=== PATIENT | male | born 1960 | race Caucasian/White ===

== ENCOUNTER 2016-09-03 01:45 | Outpatient (CLI) ==
[2013-06-06 08:37] VITALS: BMI 31.2
== END 2016-09-03 01:46 ==
LOC: AMBL 01:45
PROVIDERS: ATTEND Emergency Medicine
DX: E11.649 Type 2 diabetes mellitus with hypoglycemia without coma (principal); R41.82 Altered mental status, unspecified; R40.4 Transient alteration of awareness

== ENCOUNTER 2016-12-15 02:27 | Outpatient (CLI) ==
[2013-06-06 08:37] VITALS: BMI 31.2
== END 2016-12-15 02:28 ==
LOC: AMBL 02:27
PROVIDERS: ATTEND Internal Medicine Geriatric Medicine
DX: E11.649 Type 2 diabetes mellitus with hypoglycemia without coma (principal); R41.82 Altered mental status, unspecified; R40.2431 Glasgow coma scale score 3-8, in the field [EMT or ambulance]

== ENCOUNTER 2017-01-21 13:00 | Outpatient (RCR) ==
[2013-06-06 08:37] VITALS: BMI 31.2
--- NOTE | 2016-12-26 09:16 | RS.OPPTEV2 ---
Date of Note: 12/23/16 Visit #: 1 Date of Evaluation: 12/23/16 Payer Source: MEDICARE Surgery Performed?: Yes Treatment Diagnosis: Right foot/ankle pain and limitation History of Condition/Mechanism of Injury:: Patient reports injurying right ankle on 11/09/16 while cutting logs. A log flew off the machine and hit his leg. Reports having surgery on 11/22/16. He has been out of a cast for one week and is to be NWB until he returns to his doctor in January. Prior Level of Function.....Patient was independent with: ADL's, Self Care, Work /Vocation, Caregiving, Ambulation/Mobility, Community Integration/Access Functional Limitations: Sleep, Self Care, ADL's, Reaching, Pushing, Pulling, Lifting, Carrying, Sitting, Standing, Bending, Squatting, Ambulation, Community Access/Integration Current Subjective/complaints:: Patient reports he wears the CAM boot on the right LE unless he is at home sitting down, using the knee walker, or in bed. He uses crutches and the boot anytime he is on his feet. Reports a history of neuropathy from Diabetes. States he is very frustrated that he cannot do anything. He has been taking of the CAM boot to do ROM of the ankle. Treatment Side (optional): Right Medical History Medical History: Hypertension, COPD, Diabetes, Arthritis Medical History Comments:: Multiple medical dx, neuropathy Surgical History: Other Surgical History Comments:: Right foot surgery to remove bone spurs and length gastroc tendon 2014. Smoking Status: Never smoker Hx Home Medications: Multiple include Ultram BID, Gabapentin Patient's Goals: His goal is to return to his previous level of function. Pain Assessment - Pain Description Pain Location: right foot and ankle Pain Description: sharp Current Pain Intensity: not rated Worst Pain Intensity: not rated Functional Outcome Measure LE Functional Scale: 16 (16/80=80% impaired) - G Codes & Severity Modifier G Codes & Modifier: Mobility current CM. Mobiltiy goal CJ Source of G Code score: LE functional scale Observation - Observation Inspection: Patient presents to department with CAM boot on right LE and ambulating with two crutches. Upon removal of the CAM boot, right ankle, foot, and toes appear moderately swollen. Demonstrates a light dressing over the inferior portion of the incision at the lateral lower leg, which exhibits slight drainage. Girth Measurement Lower: Right LE : metheads 27.25 cm, arch 27 cm, malleoli 28.25 cm, 26 cm 4 inch above lateral malleoli. Gait - Gait Pattern Gait Comments: Patient ambulates NWB on right LE with two crutches, independently with safe gait. Ankle ROM: Left WFL's Ankle Muscle Strength: Left WFL's - Right Ankle ROM Right DF with Knee extension: to neutral Right Plantarflexion: 40 (degrees AROM) Right Eversion: 5 (degrees AROM) Right Inversion: 5 (degrees AROM) Right Ankle/Foot ROM Limitations: Pain Comments: Pain with end range eversion. - Right Ankle Strength Right Dorsiflexion: 4 Good Right Plantarflexion: 4- Good- Right Eversion: 4- Good- Right Inversion: 4- Good- Palpation Comments:: Reports general tenderness along the lateral malleoli. Sensation - Sensation Comments: Reports neuropathy in both feet, but states he can feel deep pressure throughout both LE's. Balance - Sitting Balance Static Sitting Balance: Normal Dynamic Sitting Balance: Normal - Standing Balance Static Standing Balance: Poor Dynamic Standing Balance: Poor - Treatment Modality: Electrical Stim Unattended Parameters/Method Applied: 4 small pads crossed current to right foot/ankle X20 mins HVGS up to 260 peak volts with CP Patient Position: Sitting - Heat/Cryotherapy Treatment: Cryotherapy (with Estim to right ankle) Interventions - Exercise/Activities/Manual Therapy Exercises/Activities: Patient advised to perform towel stretch for heelcord stretching and continue ROM in all directions in a pain-free range. Advised to ice the ankle/foot. Manual Therapy: NA HOME EXERCISE PROGRAM: towel stretch for heelcord stretching and continue ROM in all directions in a pain-free range. - Charges Total Direct Minutes: 58 mins Total Treatment Time: 58 mins Procedures billed for this date of service:: Eval Medium Assessment Assessment: Patient presents to therapy with a diagnosis of right closed fracture of distal end of fibula. He is ~ 5 weeks s/p ORIF. He is limited with all activities of selfcare, ADL's, and ambulation due to the proximity of surgery and being NWB on the Right LE. He will benefit from ROM and strengthening exercises to the right ankle and progress as he is able to weight bear. He demonstrates great potential to return to his previous level of function. Patient Education: Education of diagnosis, Body/Joint mechanics, Home Exercise Program, Home Safety, Activity Modification, Education of Plan of Care Rehab Potential: Good Short Term Goals Goal #1: Right DF 10 Goal to be met by: 01/09/17 Goal #2: Right ankle inversion and eversion 4/5. Goal to be met by: 01/09/17 Goal #3: Patient independent with basic HEP. Goal to be met by: 01/09/17 Correction Goals Goal #1: Patient to improve LE functional score to 60/80. Goal to be met by: 02/14/17 Goal #2: Pt to ambulate w/o assistive device with minimal gait deviation. Goal to be met by: 02/14/17 Goal #3: Pt able to perform all selfcare and ADL's without difficulty or ankle pain. Goal to be met by: 02/14/17 Goal #4: Pt able to return to work activities with minimal limitation. Goal to be met by: 02/14/17 Plan - Treatment to be Provided Procedures: Therapeutic Exercises, Therapeutic Activity, Gait Training, Neuromuscular Rehab, Manual Therapy, Patient Education Modalities: Electrical Stimulation, Class IV Laser, Cryotherapy, Hot Packs - Treatment Plan Frequency: 2-3 X week Duration: 6 weeks ORDER # VISITS AND/OR THROUGH DATE: 02/14/17 - Treatment Code (1) Ankle stiffness Qualifiers: Laterality: right Qualified Description: Stiffness of ankle joint, right Qualifier Code(s): (M25.671) Stiffness of right ankle, not elsewhere classified (2) Ankle weakness Comments: M62.81 (3) Ankle pain Qualifiers: Laterality: right Chronicity: acute Qualified Description: Acute right ankle pain Qualifier Code(s): (M25.571) Pain in right ankle and joints of right foot (4) Closed fracture of distal end of right fibula with routine healing Qualifiers: Encounter type: subsequent encounter Fracture morphology: unspecified fracture morphology Qualified Description: Closed fracture of distal end of right fibula with routine healing, unspecified fracture morphology, subsequent encounter Qualifier Code(s): (S82.831D) Other fracture of upper and lower end of right fibula, subsequent encounter for closed fracture with routine healing (5) Status post surgery Comments: Z98.890
--- NOTE | 2016-12-26 14:49 | RS.OPPTDN ---
Subjective Date of Note: 12/26/16 Visit #: 2 Date of Evaluation: 12/23/16 Payer Source: MEDICARE Treatment Diagnosis: Right foot/ankle pain and limitation Current Subjective/complaints:: Reports he is careful not to put weight on the right foot. States he is consistent with HEP of ROM of the right ankle. Pain Assessment - Pain Description Pain Location: right foot and ankle Pain Description: sharp Current Pain Intensity: mild with movement - Treatment Modality: Electrical Stim Unattended Parameters/Method Applied: [id number] HVGC to 4 large pads cross current to the right ankle at 475p.v. with CP prior to EX. Patient Position: Sitting - Heat/Cryotherapy Treatment: Cryotherapy ([id number] with Estim ) Interventions - Exercise/Activities/Manual Therapy Exercises/Activities: PROM of right ankle. Isometrics for right ankle df, inversion, and eversion, multiple reps. Isometric ankle pf 4s/5reps. Passive heelcord stretching. AROM ankle circles cw and ccw. Walked with patient to vecnyle and discussed safety with crutches and foot placement to avoid back and hip pain. Total minutes of Exercise: 20mins Manual Therapy: NA HOME EXERCISE PROGRAM: towel stretch for heelcord stretching and continue ROM in all directions in a pain-free range. Isometric ankld df, inversion, and eversion. - Charges Total Direct Minutes: 20mins Total Treatment Time: 40mins Procedures billed for this date of service:: CP, Estim unattended, EX Assessment: Patient progressing with exercises. Patient Education: Body/Joint mechanics, Home Exercise Program, Home Safety, Activity Modification Patient demonstrates compliance with HEP?: Yes Short Term Goals Goal #1: Right DF 10 Goal to be met by: 01/09/17 Progress towards Goal:: Progressing Goal #2: Right ankle inversion and eversion 4/5. Goal to be met by: 01/09/17 Progress towards Goal:: Progressing Goal #3: Patient independent with basic HEP. Goal to be met by: 01/09/17 Progress towards Goal:: Progressing Fdc Goals Goal #1: Patient to improve LE functional score to 60/80. Goal to be met by: 02/14/17 Goal #2: Pt to ambulate w/o assistive device with minimal gait deviation. Goal to be met by: 02/14/17 Goal #3: Pt able to perform all selfcare and ADL's without difficulty or ankle pain. Goal to be met by: 02/14/17 Goal #4: Pt able to return to work activities with minimal limitation. Goal to be met by: 02/14/17 Plan PLAN OF CARE EXPIRES ON:: 02/14/17 ORDER # VISITS AND/OR THROUGH DATE: 02/14/17 PLAN: Continue Plan of Care
--- NOTE | 2016-12-30 16:29 | RS.OPPTDN ---
Subjective Date of Note: 12/30/16 Visit #: 3 Date of Evaluation: 12/23/16 Payer Source: MEDICARE Treatment Diagnosis: Right foot/ankle pain and limitation Current Subjective/complaints:: Patient reports swelling seems to be improving. States incision line conitnues to have small amount of drainage, but he continues to consistently do dressing changes and feels it is healing. Pain Assessment - Pain Description Pain Location: right foot and ankle Pain Description: sharp Current Pain Intensity: mild with movement - Treatment Modality: Electrical Stim Unattended Parameters/Method Applied: [id number] HVGC to 500p.v. with 4 large pads to the right ankle cross current with cold pack prior to EX. Patient in sitting. Patient Position: Sitting - Heat/Cryotherapy Treatment: Cryotherapy ([id number] with Estim ) Interventions - Exercise/Activities/Manual Therapy Exercises/Activities: PROM of right ankle. Isometrics for right ankle df, inversion, and eversion, multiple reps. Isometric ankle pf, inv, and eversion, multiple reps. Passive heelcord stretching. AROM ankle circles cw and ccw. Yellow theraband for ankle pf, inv, and eversion, 3s/10reps each. Yellow theraband for ankle pf, 2s/10reps. Total minutes of Exercise: 20mins Manual Therapy: NA HOME EXERCISE PROGRAM: towel stretch for heelcord stretching and continue ROM in all directions in a pain-free range. Isometric ankld df, inversion, and eversion. Yellow theraband for ankle df, inversion, eversion. - Charges Total Direct Minutes: 20mins Total Treatment Time: 40mins Procedures billed for this date of service:: CP, Estim unattended, EX Assessment: Patient progressing with light resistive exercise. Patient Education: Home Exercise Program, Home Safety, Activity Modification Patient demonstrates compliance with HEP?: Yes Short Term Goals Goal #1: Right DF 10 Goal to be met by: 01/09/17 Progress towards Goal:: Progressing Goal #2: Right ankle inversion and eversion 4/5. Goal to be met by: 01/09/17 Progress towards Goal:: Progressing Goal #3: Patient independent with basic HEP. Goal to be met by: 01/09/17 Progress towards Goal:: Progressing Intermediate Goals Goal #1: Patient to improve LE functional score to 60/80. Goal to be met by: 02/14/17 Goal #2: Pt to ambulate w/o assistive device with minimal gait deviation. Goal to be met by: 02/14/17 Goal #3: Pt able to perform all selfcare and ADL's without difficulty or ankle pain. Goal to be met by: 02/14/17 Goal #4: Pt able to return to work activities with minimal limitation. Goal to be met by: 02/14/17 Plan PLAN OF CARE EXPIRES ON:: 02/14/17 ORDER # VISITS AND/OR THROUGH DATE: 02/14/17 PLAN: Continue Plan of Care
--- NOTE | 2017-01-02 15:24 | RS.OPPTDN ---
Subjective Date of Note: 01/02/17 Visit #: 4 Date of Evaluation: 12/23/16 Payer Source: MEDICARE Treatment Diagnosis: Right foot/ankle pain and limitation Current Subjective/complaints:: Patient reports continued improvement in ROM of the right foot/ankle. Reports continued swelling. States he is working on HEP including resistive work with yellow theraband. Pain Assessment - Pain Description Pain Location: right foot and ankle Pain Description: sharp Current Pain Intensity: mild with movement - Treatment Modality: Electrical Stim Unattended Parameters/Method Applied: [id number] HVGC to 500p.v. with 4 large pads to the right ankle with CP prior to EX. Patient Position: Sitting - Heat/Cryotherapy Treatment: Cryotherapy ([id number] with Estim ) Interventions - Exercise/Activities/Manual Therapy Exercises/Activities: PROM of right ankle. Isometrics for right ankle df, inversion, and eversion, multiple reps. Isometric ankle pf, inv, and eversion, multiple reps. Passive heelcord stretching. AROM ankle circles cw and ccw. Increaesed to red theraband for ankle pf, inv, and eversion, 4s/10reps each. Red theraband for ankle pf, 2s/10reps. Total minutes of Exercise: 20mins Manual Therapy: NA HOME EXERCISE PROGRAM: towel stretch for heelcord stretching and continue ROM in all directions in a pain-free range. Isometric ankld df, inversion, and eversion. Yellow theraband for ankle df, inversion, eversion. - Charges Total Direct Minutes: 20mins Total Treatment Time: 40mins Procedures billed for this date of service:: CP, Estim unattended, EX Assessment: Patient progressing with ROM and ability to work on resistive exercise. Patient Education: Home Exercise Program, Home Safety Patient demonstrates compliance with HEP?: Yes Short Term Goals Goal #1: Right DF 10 Goal to be met by: 01/09/17 Progress towards Goal:: Progressing Goal #2: Right ankle inversion and eversion 4/5. Goal to be met by: 01/09/17 Progress towards Goal:: Progressing Goal #3: Patient independent with basic HEP. Goal to be met by: 01/09/17 (100%) Progress towards Goal:: Met [facility] Goals Goal #1: Patient to improve LE functional score to 60/80. Goal to be met by: 02/14/17 Goal #2: Pt to ambulate w/o assistive device with minimal gait deviation. Goal to be met by: 02/14/17 Progress towards goal: No Change Goal #3: Pt able to perform all selfcare and ADL's without difficulty or ankle pain. Goal to be met by: 02/14/17 Progress towards goal: Progressing Goal #4: Pt able to return to work activities with minimal limitation. Goal to be met by: 02/14/17 Plan PLAN OF CARE EXPIRES ON:: 02/14/17 ORDER # VISITS AND/OR THROUGH DATE: 02/14/17 PLAN: Progress Exercises (Continue modalities and progress exercise at tolerated.)
--- NOTE | 2017-01-06 16:16 | RS.OPPTDN ---
Subjective Date of Note: 01/06/17 Visit #: 5 Date of Evaluation: 12/23/16 Payer Source: MEDICARE Treatment Diagnosis: Right foot/ankle pain and limitation Current Subjective/complaints:: Patient reports continued improvement in ROM and strengthening exercise with HEP. Pain Assessment - Pain Description Pain Location: right foot and ankle Pain Description: sharp Current Pain Intensity: mild with movement - Treatment Modality: Electrical Stim Unattended Parameters/Method Applied: [id number] HVGC to 500 p.v. with CP to the right ankle prior to EX. Patient Position: Sitting - Heat/Cryotherapy Treatment: Cryotherapy ([id number] with Estim ) Interventions - Exercise/Activities/Manual Therapy Exercises/Activities: PROM of right ankle. Isometrics for right ankle df, inversion, and eversion, multiple reps. Isometric ankle pf, inv, and eversion, multiple reps. Passive heelcord stretching. AROM ankle circles cw and ccw. Red theraband for ankle pf, inv, and eversion, 4s/10reps each. Red theraband for ankle pf, 2s/10reps. Total minutes of Exercise: 20mins Manual Therapy: NA HOME EXERCISE PROGRAM: towel stretch for heelcord stretching and continue ROM in all directions in a pain-free range. Isometric ankld df, inversion, and eversion. Red theraband for ankle df, inversion, eversion. - Charges Total Direct Minutes: 20mins Total Treatment Time: 40mins Procedures billed for this date of service:: CP, Estim unattended, EX Assessment: Patient progressin ith strengthening exercise. Patient Education: Home Exercise Program Patient demonstrates compliance with HEP?: Yes Short Term Goals Goal #1: Right DF 10 Goal to be met by: 01/09/17 Progress towards Goal:: Progressing Goal #2: Right ankle inversion and eversion 4/5. Goal to be met by: 01/09/17 Progress towards Goal:: Progressing Goal #3: Patient independent with basic HEP. Goal to be met by: 01/09/17 (100%) Progress towards Goal:: Met [facility] Goals Goal #1: Patient to improve LE functional score to 60/80. Goal to be met by: 02/14/17 Goal #2: Pt to ambulate w/o assistive device with minimal gait deviation. Goal to be met by: 02/14/17 Progress towards goal: No Change Goal #3: Pt able to perform all selfcare and ADL's without difficulty or ankle pain. Goal to be met by: 02/14/17 Progress towards goal: Progressing Goal #4: Pt able to return to work activities with minimal limitation. Goal to be met by: 02/14/17 Plan PLAN OF CARE EXPIRES ON:: 02/14/17 ORDER # VISITS AND/OR THROUGH DATE: 02/14/17 PLAN: Continue Plan of Care
--- NOTE | 2017-01-09 15:00 | RS.OPPTDN ---
Subjective Date of Note: 01/09/17 Visit #: 6 Date of Evaluation: 12/23/16 Payer Source: MEDICARE Treatment Diagnosis: Right foot/ankle pain and limitation Current Subjective/complaints:: Patient reports he had to put a little weight on the right foot yesterday because of dropping his crutches. He reports continued swelling today. States right ankle feels better after treatment and exercise. Pain Assessment - Pain Description Pain Location: right foot and ankle Pain Description: sharp Current Pain Intensity: mild with movement - Treatment Modality: Electrical Stim Unattended Parameters/Method Applied: [id number] HVGC to 485p.v. with 4 large pads to the right ankle with cold pack prior to EX. Patient Position: Sitting - Heat/Cryotherapy Treatment: Cryotherapy ([id number] with Estim ) Interventions - Exercise/Activities/Manual Therapy Exercises/Activities: PROM of right ankle. Isometrics for right ankle df, inversion, and eversion, multiple reps. Isometric ankle pf, inv, and eversion, multiple reps. Passive heelcord stretching. AROM ankle circles cw and ccw. Red theraband for ankle df, pf, inv, and eversion, multiple reps each direction. Total minutes of Exercise: 15mins Manual Therapy: NA HOME EXERCISE PROGRAM: towel stretch for heelcord stretching and continue ROM in all directions in a pain-free range. Isometric ankld df, inversion, and eversion. Red theraband for ankle df, inversion, eversion. - Objective Findings Observations,measurements,etc.: Patient demos active right ankle df to approx 5 degrees in sitting with right knee at 90 degrees. - Charges Total Direct Minutes: 15mins Total Treatment Time: 35mins Procedures billed for this date of service:: CP, Estim unattended, EX Assessment: Patient progressing with exercise and with active df. Patient Education: Home Exercise Program Patient demonstrates compliance with HEP?: Yes Short Term Goals Goal #1: Right DF 10 Goal to be met by: 01/09/17 (50%) Progress towards Goal:: Progressing Goal #2: Right ankle inversion and eversion 4/5. Goal to be met by: 01/09/17 (80%) Progress towards Goal:: Progressing Goal #3: Patient independent with basic HEP. Goal to be met by: 01/09/17 (100%) Progress towards Goal:: Met [employer] Goals Goal #1: Patient to improve LE functional score to 60/80. Goal to be met by: 02/14/17 Goal #2: Pt to ambulate w/o assistive device with minimal gait deviation. Goal to be met by: 02/14/17 Progress towards goal: No Change Goal #3: Pt able to perform all selfcare and ADL's without difficulty or ankle pain. Goal to be met by: 02/14/17 Progress towards goal: Progressing Goal #4: Pt able to return to work activities with minimal limitation. Goal to be met by: 02/14/17 Plan PLAN OF CARE EXPIRES ON:: 02/14/17 ORDER # VISITS AND/OR THROUGH DATE: 02/14/17 PLAN: Continue Plan of Care
--- NOTE | 2017-01-13 14:40 | RS.OPPTDN ---
Subjective Date of Note: 01/13/17 Visit #: 7 Date of Evaluation: 12/23/16 Payer Source: MEDICARE Treatment Diagnosis: Right foot/ankle pain and limitation Current Subjective/complaints:: Patient reports strength and ROM of right ankle continues to improve but incision continues to have some drainage. Pain Assessment - Pain Description Pain Location: right foot and ankle Pain Description: sharp Current Pain Intensity: mild with movement - Treatment Modality: Electrical Stim Unattended Parameters/Method Applied: [id number] HVGC to 500p.v. with 4 large pads to the right ankle with CP Patient Position: Sitting - Heat/Cryotherapy Treatment: Cryotherapy ([id number] with Estim ) Interventions - Exercise/Activities/Manual Therapy Exercises/Activities: PROM of right ankle. Isometrics for right ankle df, inversion, and eversion, multiple reps. Isometric ankle pf, inv, and eversion, multiple reps. Passive heelcord stretching. AROM ankle circles cw and ccw. Red theraband for ankle df, pf, inv, and eversion, multiple reps all direction. Total minutes of Exercise: 17mins Manual Therapy: NA HOME EXERCISE PROGRAM: towel stretch for heelcord stretching and continue ROM in all directions in a pain-free range. Isometric ankld df, inversion, and eversion. Red theraband for ankle df, inversion, eversion. - Charges Total Direct Minutes: 17mins Total Treatment Time: 37mins Procedures billed for this date of service:: CP, Estim unattended, EX Assessment: Patient progressing well with exercise and ROM of right ankle. He is consistently checking incision and changing dressings. Patient Education: Home Exercise Program Patient demonstrates compliance with HEP?: Yes Short Term Goals Goal #1: Right DF 10 Goal to be met by: 01/09/17 (50%) Progress towards Goal:: Progressing Goal #2: Right ankle inversion and eversion 4/5. Goal to be met by: 01/09/17 (100%) Progress towards Goal:: Met Goal #3: Patient independent with basic HEP. Goal to be met by: 01/09/17 (100%) Progress towards Goal:: Met [facility] Home Goals Goal #1: Patient to improve LE functional score to 60/80. Goal to be met by: 02/14/17 Goal #2: Pt to ambulate w/o assistive device with minimal gait deviation. Goal to be met by: 02/14/17 Progress towards goal: No Change Goal #3: Pt able to perform all selfcare and ADL's without difficulty or ankle pain. Goal to be met by: 02/14/17 Progress towards goal: Progressing Goal #4: Pt able to return to work activities with minimal limitation. Goal to be met by: 02/14/17 Plan PLAN OF CARE EXPIRES ON:: 02/14/17 ORDER # VISITS AND/OR THROUGH DATE: 02/14/17 PLAN: Continue Plan of Care
--- NOTE | 2017-01-15 14:33 | RS.OPPTDN ---
Subjective Date of Note: 01/15/17 Visit #: 8 Date of Evaluation: 12/23/16 Payer Source: MEDICARE Treatment Diagnosis: Right foot/ankle pain and limitation Current Subjective/complaints:: Patient reports he went for follow-up with physician. Reports physician was pleased with his ROM but concerned with incision still having drainage. Pain Assessment - Pain Description Pain Location: right foot and ankle Pain Description: sharp Current Pain Intensity: mild with movement - Treatment Modality: Electrical Stim Unattended Parameters/Method Applied: [id number] HVGC to 480 p.v. with 4 large pads to the right ankle and distal gastroc with CP prior to EX. Patient Position: Sitting - Heat/Cryotherapy Treatment: Cryotherapy ([id number] with Estim ) Interventions - Exercise/Activities/Manual Therapy Exercises/Activities: PROM of right ankle. Isometrics for right ankle df, inversion, and eversion, multiple reps. Isometric ankle pf, inv, and eversion, multiple reps. Passive heelcord stretching. AROM ankle circles cw and ccw. Increased to green theraband for ankle df, pf, inv, and eversion, multiple reps all direction. Curling pillow case with toes and lifting from floor. Total minutes of Exercise: 18mins Manual Therapy: NA HOME EXERCISE PROGRAM: towel stretch for heelcord stretching and continue ROM in all directions in a pain-free range. Isometric ankld df, inversion, and eversion. Red theraband for ankle df, inversion, eversion. - Charges Total Direct Minutes: 18mins Total Treatment Time: 40mins Procedures billed for this date of service:: CP, Estim unattended, EX Assessment: Patient progressing with strength and ROM of the right ankle. Patient Education: Home Exercise Program Patient demonstrates compliance with HEP?: Yes Short Term Goals Goal #1: Right DF 10 Goal to be met by: 01/09/17 (50%) Progress towards Goal:: Progressing Goal #2: Right ankle inversion and eversion 4/5. Goal to be met by: 01/09/17 (100%) Progress towards Goal:: Met Goal #3: Patient independent with basic HEP. Goal to be met by: 01/09/17 (100%) Progress towards Goal:: Met Sba Underwriter Goals Goal #1: Patient to improve LE functional score to 60/80. Goal to be met by: 02/14/17 Goal #2: Pt to ambulate w/o assistive device with minimal gait deviation. Goal to be met by: 02/14/17 Progress towards goal: No Change Goal #3: Pt able to perform all selfcare and ADL's without difficulty or ankle pain. Goal to be met by: 02/14/17 Progress towards goal: Progressing Goal #4: Pt able to return to work activities with minimal limitation. Goal to be met by: 02/14/17 Plan PLAN OF CARE EXPIRES ON:: 02/14/17 ORDER # VISITS AND/OR THROUGH DATE: 02/14/17 PLAN: Continue Plan of Care
--- NOTE | 2017-01-21 15:41 | RS.OPPTDN ---
Subjective Date of Note: 01/21/17 Visit #: 9 Date of Evaluation: 12/23/16 Payer Source: MEDICARE Treatment Diagnosis: Right foot/ankle pain and limitation Current Subjective/complaints:: Patient reports some increased soreness following increase in resistive exercises last session. Reports he is going back for a follow-up appointment tomorrow for re-check on incision line which continues to have mild drainage. Pain Assessment - Pain Description Pain Location: right foot and ankle Pain Description: sharp Current Pain Intensity: mild with movement - Treatment Modality: Electrical Stim Unattended Parameters/Method Applied: [id number] HVGC to 480-500p.v. with 4 large pads with CP to the right ankle and distal gastrocs prior to EX. Patient Position: Sitting - Heat/Cryotherapy Treatment: Cryotherapy ([id number] with Estim ) Interventions - Exercise/Activities/Manual Therapy Exercises/Activities: PROM of right ankle. Isometrics for right ankle df, inversion, and eversion, multiple reps. Isometric ankle pf, inv, and eversion, multiple reps. Passive heelcord stretching. AROM ankle circles cw and ccw. Decreased to red theraband for ankle df, pf, inv, and eversion, multiple reps all direction. Total minutes of Exercise: 15mins Manual Therapy: x5mins Directional massage to the right ankle along the extensor tendons and the achilles tendon to reduce swelling. Total minutes of Manual Therapy: 5mins HOME EXERCISE PROGRAM: towel stretch for heelcord stretching and continue ROM in all directions in a pain-free range. Isometric ankld df, inversion, and eversion. Red theraband for ankle df, inversion, eversion. - Charges Total Direct Minutes: 20mins Total Treatment Time: 45mins Procedures billed for this date of service:: CP, Estim unattended, EX Assessment: Patient continues to demo an increase in ROM and decrease in swelling, but incision line continues to have a mild drainage. Patient Education: Home Exercise Program Patient demonstrates compliance with HEP?: Yes Short Term Goals Goal #1: Right DF 10 Goal to be met by: 01/09/17 (50%) Progress towards Goal:: Progressing Goal #2: Right ankle inversion and eversion 4/5. Goal to be met by: 01/09/17 (100%) Progress towards Goal:: Met Goal #3: Patient independent with basic HEP. Goal to be met by: 01/09/17 (100%) Progress towards Goal:: Met Sales Exec Goals Goal #1: Patient to improve LE functional score to 60/80. Goal to be met by: 02/14/17 Goal #2: Pt to ambulate w/o assistive device with minimal gait deviation. Goal to be met by: 02/14/17 Progress towards goal: No Change Goal #3: Pt able to perform all selfcare and ADL's without difficulty or ankle pain. Goal to be met by: 02/14/17 Progress towards goal: Progressing Goal #4: Pt able to return to work activities with minimal limitation. Goal to be met by: 02/14/17 Plan PLAN OF CARE EXPIRES ON:: 02/14/17 ORDER # VISITS AND/OR THROUGH DATE: 02/14/17 PLAN: Continue Plan of Care
== END 2017-01-22 ==
PROVIDERS: ATTEND Orthopaedic Surgery
DX: S82.831D Other fracture of upper and lower end of right fibula, subsequent encounter for closed fracture with routine healing (principal)

== ENCOUNTER 2017-01-23 12:04 | Outpatient (CLI) ==
[2013-06-06 08:37] VITALS: BMI 31.2
[2017-01-23 13:07] LABS: ERYTHROCYTE SEDIMENTATION RATE 17 mm/hr (0-15); ESR INTERNAL QC INTERNAL QC VALID
== END 2017-01-23 12:05 | disposition home or self-care (01) ==
LOC: LAB 12:04
PROVIDERS: ATTEND Physician Assistant
DX: S82.831D Other fracture of upper and lower end of right fibula, subsequent encounter for closed fracture with routine healing (principal); Z48.89 Encounter for other specified surgical aftercare
CPT/HCPCS: 36415; 85651; 86140

== ENCOUNTER 2017-01-27 10:19 | Outpatient (CLI) ==
[2013-06-06 08:37] VITALS: BMI 31.2
[2017-01-27 11:06] LABS: ERYTHROCYTE SEDIMENTATION RATE 15 mm/hr (0-15); ESR INTERNAL QC INTERNAL QC VALID
== END 2017-01-27 10:20 | disposition home or self-care (01) ==
LOC: LAB 10:19
PROVIDERS: ATTEND Physician Assistant
DX: S82.831D Other fracture of upper and lower end of right fibula, subsequent encounter for closed fracture with routine healing (principal); Z48.89 Encounter for other specified surgical aftercare
CPT/HCPCS: 36415; 85651; 86140

== ENCOUNTER 2017-02-13 11:00 | Outpatient (RCR) ==
[2013-06-06 08:37] VITALS: BMI 31.2
--- NOTE | 2017-01-27 13:35 | RS.OPPTDN ---
Subjective Date of Note: 01/23/17 Visit #: 10 Date of Evaluation: 12/23/16 Payer Source: MEDICARE Treatment Diagnosis: Right foot/ankle pain and limitation Current Subjective/complaints:: Patient reports mobility of ankle seems to be improving and swelling decreasing. He reports having another follow-up with surgeon and going back again next week due to poor healing of the incision site. Pain Assessment - Pain Description Pain Location: right foot and ankle Pain Description: sharp Current Pain Intensity: mild with movement - Treatment Modality: Electrical Stim Unattended Parameters/Method Applied: [id number] HVGC to 480p.v. to the right ankle and distal gastroc with CP prior to EX. Patient in sitting. Patient Position: Sitting - Heat/Cryotherapy Treatment: Cryotherapy ([id number] with Estim ) Interventions - Exercise/Activities/Manual Therapy Exercises/Activities: PROM of right ankle. Isometrics for right ankle df, inversion, and eversion, multiple reps. Isometric ankle pf, df, inv, and eversion, multiple reps. Passive heelcord stretching. AROM ankle circles cw and ccw. Increased to green theraband for ankle df, pf, inv, and eversion, multiple reps all direction. Active ankle df with heel on floor. Total minutes of Exercise: 15mins Manual Therapy: x5mins Directional massage to the right ankle along the extensor tendons and the achilles tendon to reduce swelling. Total minutes of Manual Therapy: 5mins HOME EXERCISE PROGRAM: towel stretch for heelcord stretching and continue ROM in all directions in a pain-free range. Isometric ankld df, inversion, and eversion. Red theraband for ankle df, inversion, eversion. - Objective Findings Observations,measurements,etc.: Patient demos active right ankle df to 8 degrees in sitting with heel on floor. Patient continues to have light drainage at incision line. Following treatment and exercise, incision line covered with non-adhesive dressing and foot/ankle wrapped with lupe bandage. - Charges Total Direct Minutes: 20mins Total Treatment Time: 40mins Procedures billed for this date of service:: CP, Estim unattended, EX Assessment: Patient demos increase in active df of the right ankle. Patient Education: Education of diagnosis, Body/Joint mechanics, Home Exercise Program, Home Safety, Activity Modification Patient demonstrates compliance with HEP?: Yes Short Term Goals Goal #1: Right DF 10 Goal to be met by: 01/09/17 (90%) Progress towards Goal:: Progressing Goal #2: Right ankle inversion and eversion 4/5. Goal to be met by: 01/09/17 (100%) Progress towards Goal:: Met Goal #3: Patient independent with basic HEP. Goal to be met by: 01/09/17 (100%) Progress towards Goal:: Met Crown And Bridge Technician Goals Goal #1: Patient to improve LE functional score to 60/80. Goal to be met by: 02/14/17 Goal #2: Pt to ambulate w/o assistive device with minimal gait deviation. Goal to be met by: 02/14/17 Progress towards goal: No Change Goal #3: Pt able to perform all selfcare and ADL's without difficulty or ankle pain. Goal to be met by: 02/14/17 Progress towards goal: Progressing Goal #4: Pt able to return to work activities with minimal limitation. Goal to be met by: 02/14/17 Progress towards goal: No Change Plan PLAN OF CARE EXPIRES ON:: 02/14/17 ORDER # VISITS AND/OR THROUGH DATE: 02/14/17 PLAN: Continue Plan of Care (Continue with current POC to increase right ankle strength and ROM.)
--- NOTE | 2017-01-27 16:05 | RS.OPPTDN ---
Subjective Date of Note: 01/27/17 Visit #: 11 Date of Evaluation: 12/23/16 Payer Source: MEDICARE Treatment Diagnosis: Right foot/ankle pain and limitation Current Subjective/complaints:: Patient reports draingae at the incision site is better but still present. States he will see physician tomorrow Pain Assessment - Pain Description Pain Location: right foot and ankle Pain Description: sharp Current Pain Intensity: mild with movement - Treatment Modality: Electrical Stim Unattended Parameters/Method Applied: [id number] HVGC to 485p.v. with 4 pads to the ankle joint and distal gastroc with CP prior to EX. Patient Position: Sitting - Heat/Cryotherapy Treatment: Cryotherapy ([id number] with Estim ) Interventions - Exercise/Activities/Manual Therapy Exercises/Activities: PROM of right ankle. Isometrics for right ankle df, inversion, and eversion, multiple reps. Isometric ankle pf, inv, and eversion, multiple reps. Passive heelcord stretching. AROM ankle circles cw and ccw. Increased to green theraband for ankle df, pf, inv, and eversion, multiple reps all direction. Active ankle df with heel on floor. Total minutes of Exercise: 15mins Manual Therapy: x5mins Directional massage to the right ankle along the extensor tendons and the achilles tendon to reduce swelling. Total minutes of Manual Therapy: 5mins HOME EXERCISE PROGRAM: towel stretch for heelcord stretching and continue ROM in all directions in a pain-free range. Isometric ankld df, inversion, and eversion. Red theraband for ankle df, inversion, eversion. - Objective Findings Observations,measurements,etc.: Active ankle df to 10 degrees actively. - Charges Total Direct Minutes: 20mins Total Treatment Time: 40mins Procedures billed for this date of service:: CP, Estim unattended, EX Assessment: Patient progressing with active ankle df. He will continue progression of strengthening and AROM if he is cleared to continue following appointment with physician. Patient Education: Body/Joint mechanics, Home Exercise Program, Home Safety Patient demonstrates compliance with HEP?: Yes Short Term Goals Goal #1: Right DF 10 Goal to be met by: 01/09/17 (100%) Progress towards Goal:: Met Goal #2: Right ankle inversion and eversion 4/5. Goal to be met by: 01/09/17 (100%) Progress towards Goal:: Met Goal #3: Patient independent with basic HEP. Goal to be met by: 01/09/17 (100%) Progress towards Goal:: Met Fci Goals Goal #1: Patient to improve LE functional score to 60/80. Goal to be met by: 02/14/17 Goal #2: Pt to ambulate w/o assistive device with minimal gait deviation. Goal to be met by: 02/14/17 Progress towards goal: No Change Goal #3: Pt able to perform all selfcare and ADL's without difficulty or ankle pain. Goal to be met by: 02/14/17 Progress towards goal: Progressing Goal #4: Pt able to return to work activities with minimal limitation. Goal to be met by: 02/14/17 Plan PLAN OF CARE EXPIRES ON:: 02/14/17 ORDER # VISITS AND/OR THROUGH DATE: 02/14/17 PLAN: Continue Plan of Care (Patient to see physician tomorrow for re-check of incision line healing. Will continue with strengthening and ROM if patient is advised to continue.)
--- NOTE | 2017-02-03 15:19 | RS.OPPTDN ---
Subjective Date of Note: 02/03/17 Visit #: 12 Date of Evaluation: 12/23/16 Payer Source: MEDICARE Treatment Diagnosis: Right foot/ankle pain and limitation Current Subjective/complaints:: Patient reports incision continues to heal but is slow. States he continues to avoid WB on right foot as instructed. Reports ROM and strength of the right ankle is improving. Pain Assessment - Pain Description Pain Location: right foot and ankle Pain Description: sharp Current Pain Intensity: mild with movement Interventions - Exercise/Activities/Manual Therapy Exercises/Activities: PROM of right ankle. Isometrics for right ankle df, inversion, and eversion, multiple reps. Isometric ankle pf, inv, and eversion, multiple reps. Passive heelcord stretching. AROM ankle circles cw and ccw. Green theraband for ankle df, pf, inv, and eversion, multiple reps all direction. Active ankle df with heel on floor. Towel pick-up with toes. Total minutes of Exercise: 20mins Manual Therapy: NA HOME EXERCISE PROGRAM: towel stretch for heelcord stretching and continue ROM in all directions in a pain-free range. Isometric ankld df, inversion, and eversion. Red theraband for ankle df, inversion, eversion. - Charges Total Direct Minutes: 20mins Total Treatment Time: 40mins Procedures billed for this date of service:: CP, Estim unattended, EX Assessment: Patient progressing with ROM and strengthening. Patient Education: Home Exercise Program Patient demonstrates compliance with HEP?: Yes Short Term Goals Goal #1: Right DF 10 Goal to be met by: 01/09/17 (100%) Progress towards Goal:: Met Goal #2: Right ankle inversion and eversion 4/5. Goal to be met by: 01/09/17 (100%) Progress towards Goal:: Met Goal #3: Patient independent with basic HEP. Goal to be met by: 01/09/17 (100%) Progress towards Goal:: Met Manager Digital Ad Operations Goals Goal #1: Patient to improve LE functional score to 60/80. Goal to be met by: 02/14/17 Goal #2: Pt to ambulate w/o assistive device with minimal gait deviation. Goal to be met by: 02/14/17 Progress towards goal: No Change Goal #3: Pt able to perform all selfcare and ADL's without difficulty or ankle pain. Goal to be met by: 02/14/17 Progress towards goal: Progressing Goal #4: Pt able to return to work activities with minimal limitation. Goal to be met by: 02/14/17 Plan PLAN OF CARE EXPIRES ON:: 02/14/17 ORDER # VISITS AND/OR THROUGH DATE: 02/14/17 PLAN: Continue Plan of Care
--- NOTE | 2017-02-05 16:03 | RS.OPPTDN ---
Subjective Date of Note: 02/05/17 Visit #: 13 Date of Evaluation: 12/23/16 Payer Source: MEDICARE Treatment Diagnosis: Right foot/ankle pain and limitation Current Subjective/complaints:: No new c/o. Pain Assessment - Pain Description Pain Location: right foot and ankle Pain Description: sharp Current Pain Intensity: mild with movement - Treatment Modality: Electrical Stim Unattended Parameters/Method Applied: [id number] HVGC to 480 to 500p.v. with 4 large pads to the achilles tendon and across right ankle with CP prior to EX. Patient Position: Sitting - Heat/Cryotherapy Treatment: Cryotherapy ([id number] with Estim ) Interventions - Exercise/Activities/Manual Therapy Exercises/Activities: PROM of right ankle. Isometrics for right ankle df, inversion, and eversion, multiple reps. Isometric ankle pf, inv, and eversion, multiple reps. Passive heelcord stretching with knee in flexion and in extension. AROM ankle circles cw and ccw. Green theraband for ankle df, pf, inv , and eversion, multiple reps all direction. Active ankle df with heel on floor. Total minutes of Exercise: 20mins Manual Therapy: NA HOME EXERCISE PROGRAM: towel stretch for heelcord stretching and continue ROM in all directions in a pain-free range. Isometric ankld df, inversion, and eversion. Red theraband for ankle df, inversion, eversion. - Charges Total Direct Minutes: 20mins Total Treatment Time: 40mins Procedures billed for this date of service:: CP, Estim unattended, EX Assessment: Patient progressing with strength in the right ankle. Patient Education: Home Exercise Program Patient demonstrates compliance with HEP?: Yes Short Term Goals Goal #1: Right DF 10 Goal to be met by: 01/09/17 (100%) Progress towards Goal:: Met Goal #2: Right ankle inversion and eversion 4/5. Goal to be met by: 01/09/17 (100%) Progress towards Goal:: Met Goal #3: Patient independent with basic HEP. Goal to be met by: 01/09/17 (100%) Progress towards Goal:: Met Telecommunication Engineer Goals Goal #1: Patient to improve LE functional score to 60/80. Goal to be met by: 02/14/17 Goal #2: Pt to ambulate w/o assistive device with minimal gait deviation. Goal to be met by: 02/14/17 Progress towards goal: No Change Goal #3: Pt able to perform all selfcare and ADL's without difficulty or ankle pain. Goal to be met by: 02/14/17 Progress towards goal: Progressing Goal #4: Pt able to return to work activities with minimal limitation. Goal to be met by: 02/14/17 Plan PLAN OF CARE EXPIRES ON:: 02/14/17 ORDER # VISITS AND/OR THROUGH DATE: 02/14/17 PLAN: Continue Plan of Care
--- NOTE | 2017-02-10 14:45 | RS.OPPTDN ---
Subjective Date of Note: 02/10/17 Visit #: 14 Date of Evaluation: 12/23/16 Payer Source: MEDICARE Treatment Diagnosis: Right foot/ankle pain and limitation Current Subjective/complaints:: Patient reports continued imporvment in ROM of the right ankle. States he feels he is nearly strong enough to be able to begin walking when given physician approval for weight-bearing. Pain Assessment - Pain Description Pain Location: right foot and ankle Pain Description: sharp Current Pain Intensity: mild with movement - Treatment Modality: Electrical Stim Unattended Parameters/Method Applied: [id number] HVGC to 480p.v. with 4 large pads to the right ankle with CP prior to EX. Patient Position: Sitting - Heat/Cryotherapy Treatment: Cryotherapy ([id number] with Estim ) Interventions - Exercise/Activities/Manual Therapy Exercises/Activities: PROM of right ankle. Isometrics for right ankle df, inversion, and eversion, multiple reps. Isometric ankle pf, inv, and eversion, multiple reps. Passive heelcord stretching with knee in flexion and in extension. AROM ankle circles cw and ccw. Green theraband for ankle df, pf, inv , and eversion, multiple reps all direction. Active ankle df with heel on floor. Picks up pillow case with toes for strengthening. Total minutes of Exercise: 22mins Manual Therapy: NA HOME EXERCISE PROGRAM: towel stretch for heelcord stretching and continue ROM in all directions in a pain-free range. Isometric ankld df, inversion, and eversion. Red theraband for ankle df, inversion, eversion. - Objective Findings Observations,measurements,etc.: Active df 11-12 degrees. - Charges Total Direct Minutes: 22mins Total Treatment Time: 42mins Procedures billed for this date of service:: CP, Estim unattended, EX Short Term Goals Goal #1: Right DF 10 Goal to be met by: 01/09/17 (100%) Progress towards Goal:: Met Goal #2: Right ankle inversion and eversion 4/5. Goal to be met by: 01/09/17 (100%) Progress towards Goal:: Met Goal #3: Patient independent with basic HEP. Goal to be met by: 01/09/17 (100%) Progress towards Goal:: Met Street Car Inspector Goals Goal #1: Patient to improve LE functional score to 60/80. Goal to be met by: 02/14/17 Goal #2: Pt to ambulate w/o assistive device with minimal gait deviation. Goal to be met by: 02/14/17 Progress towards goal: No Change Goal #3: Pt able to perform all selfcare and ADL's without difficulty or ankle pain. Goal to be met by: 02/14/17 Progress towards goal: Progressing Goal #4: Pt able to return to work activities with minimal limitation. Goal to be met by: 02/14/17 Plan PLAN OF CARE EXPIRES ON:: 02/14/17 ORDER # VISITS AND/OR THROUGH DATE: 02/14/17 PLAN: Plan for Discharge (Will see patient next session to progress strengthening exericse and prepare for discharge with HEP. Patient may resume therapy with new orders when physician approves weight-bearing status.)
--- NOTE | 2017-02-13 14:21 | RS.OPPTDN ---
Subjective Date of Note: 02/13/17 Visit #: 15 Date of Evaluation: 12/23/16 Payer Source: MEDICARE Treatment Diagnosis: Right foot/ankle pain and limitation Current Subjective/complaints:: Patient reports [facility] has instructed him to continue therapy until February 26 follow-up appointment. Patient states he understands he will be reassessed by P.T. to determine new goals as needed. Pain Assessment - Pain Description Pain Location: right foot and ankle Pain Description: sharp Current Pain Intensity: mild with movement - Treatment Modality: Electrical Stim Unattended Parameters/Method Applied: [id number] HVGC to 480p.v. 4 large pads to the right ankle and distal gastroc with CP prior to EX. Interventions - Exercise/Activities/Manual Therapy Exercises/Activities: PROM of right ankle. Isometrics for right ankle df, inversion, and eversion, multiple reps. Isometric ankle pf, inv, and eversion, multiple reps. Passive heelcord stretching with knee in flexion and in extension. AROM ankle circles cw and ccw. Increased to blue theraband for ankle df, pf, inv, and eversion, multiple reps all direction. Active ankle df with heel on floor. Picks up pillow case with toes for strengthening. Total minutes of Exercise: 22mins Manual Therapy: NA HOME EXERCISE PROGRAM: towel stretch for heelcord stretching and continue ROM in all directions in a pain-free range. Isometric ankld df, inversion, and eversion. Red theraband for ankle df, inversion, eversion. - Objective Findings Observations,measurements,etc.: Right ankle df, pf, and inversion to 5/5 MMT. Eversion to 4+/5 MMT. Patient demos approx 12-13 degrees active df in sitting. - Charges Total Direct Minutes: 22mins Total Treatment Time: 42mins Procedures billed for this date of service:: CP, Estim unattended, EX Assessment: Dewey has progressed and met all STG's. Progress with functional activities limited due to restrictions with weight-bearing. He has made some progress with FOM to 70% impairment, which should improve dramatically with weight-bearing. Patient Education: Home Exercise Program Patient demonstrates compliance with HEP?: Yes Short Term Goals Goal #1: Right DF 10 Goal to be met by: 01/09/17 (100%) Progress towards Goal:: Met Goal #2: Right ankle inversion and eversion 4/5. Goal to be met by: 01/09/17 (100%) Progress towards Goal:: Met Goal #3: Patient independent with basic HEP. Goal to be met by: 01/09/17 (100%) Progress towards Goal:: Met Long-Term Goals Goal #1: Patient to improve LE functional score to 60/80. Goal to be met by: 02/14/17 Progress towards goal: Progressing Goal #2: Pt to ambulate w/o assistive device with minimal gait deviation. Goal to be met by: 02/14/17 Progress towards goal: No Change Goal #3: Pt able to perform all selfcare and ADL's without difficulty or ankle pain. Goal to be met by: 02/14/17 Progress towards goal: Progressing Goal #4: Pt able to return to work activities with minimal limitation. Goal to be met by: 02/14/17 Plan PLAN OF CARE EXPIRES ON:: 02/14/17 ORDER # VISITS AND/OR THROUGH DATE: 02/14/17 PLAN: Hold Comments:: Patients POC and LTG's have . The patient would need new orders and reassessment by PT to determine need to continue at present. Treatment may be indicated when patient receives orders to begin weight-bearing.
== END 2017-02-21 ==
PROVIDERS: ATTEND Orthopaedic Surgery
DX: S82.831D Other fracture of upper and lower end of right fibula, subsequent encounter for closed fracture with routine healing (principal); Z48.89 Encounter for other specified surgical aftercare
CPT/HCPCS: 36415; 85651; 86140

== ENCOUNTER 2017-05-28 10:29 | Outpatient (CLI) | payer OTHER ==
[2013-06-06 08:37] VITALS: BMI 31.2
--- NOTE | 2017-05-28 10:56 | DI ---
EXAM: Four views of the left elbow. History: Left elbow mass. Findings: No acute fracture or dislocation. No abnormal calcifications or radiopaque foreign bodies . Joint spaces are relatively preserved. No obvious soft tissue mass is seen over the region of int erest. Impression: No acute osseous abnormality
== END 2017-05-28 10:30 | disposition home or self-care (01) ==
LOC: RAD 10:29
PROVIDERS: ATTEND Family Medicine
DX: R22.30 Localized swelling, mass and lump, unspecified upper limb (principal)

== ENCOUNTER 2017-06-20 10:12 | Emergency (ER) | payer OTHER ==
[2017-06-20 10:17] VITALS: BP 178/98; TEMP 98; BMI 31.6
--- NOTE | 2017-06-20 10:53 | DI ---
EXAM: Three views of the right wrist. History: Right wrist pain. Findings: No acute fracture or dislocation. Degenerative cysts are seen within the carpal bones. M ild to moderate joint space narrowing seen at the wrist. Atherosclerotic vascular calcifications. S evere joint space narrowing of the third MCP joint. Impression: 1. No acute osseous abnormality. 2. Degenerative changes. 3. Atherosclerotic vascular disease.
--- NOTE | 2017-06-20 10:55 | DI ---
EXAM: Three views of the right hand. History: Right hand pain. Findings: No acute fracture or dislocation. Atherosclerotic vascular calcifications. Severe narrow ing of the third MCP joint. Moderate narrowing of the interphalangeal joints with prominent osteophy aniya. Diffuse soft tissue swelling most noticeable dorsally. Impression: 1. No acute osseous abnormality. 2. Osteoarthritis. 3. Diffuse soft tissue swelling. 4. Atherosclerotic vascular disease.
--- NOTE | 2017-06-20 11:14 | ED.PDOC ---
General ED Provider: Dr. BRYAN LEW Chief Complaint: Wrist Pain/Injury Stated Complaint: wrist and hand pain Time Seen by Physician: 10:12 (inital injury was weeks ago, seen with galina at all times) Mode of Arrival: Walk-In Information Source: Patient Primary Care Provider: BUSTER GARCIA Referred to ED by: Other (prior films were negative pain is ongoing ) Nursing and Triage Documentation Reviewed and Agree: Yes Musculoskeletal Complaint Exam - Hand/Wrist Complaint/Exam Location of Pain: Reports: Right, Hand, Wrist Mechanism of Injury: Reports: No known trauma (within the past few days remote trauma ) Onset/Duration: chronic Symptoms Are: Still present Onset of Pain: Reports: Weeks Initial Severity: Moderate Current Severity: Moderate Location: Reports: Discrete Character: Reports: Aching Alleviating: Reports: Rest Aggravating: Reports: Movement Associated Signs and Symptoms: Denies: Swelling, Redness, Bruising, Fever, Weakness, Numbness, Tingling Related History: Reports: Similar episode Dominant Hand: Right Related Surgical History: Reports: None Tenderness: Present: Radius, Ulna, Carpal, Metacarpal, Phalanx. Absent: Snuff box Compartment Syndrome Risk Factors: Present: Pain Differential Diagnoses: Closed Fracture, Sprain, Strain Review of Systems - Review Of Systems Constitutional: Reports: No symptoms Eyes: Reports: No symptoms Ears, Nose, Mouth, Throat: Reports: No symptoms Respiratory: Reports: No symptoms Cardiac: Reports: No symptoms GI: Reports: No symptoms : Reports: No symptoms Musculoskeletal: Reports: Joint pain Skin: Reports: No symptoms Neurological: Reports: No symptoms Endocrine: Reports: No symptoms Hematologic/Lymphatic: Reports: No symptoms All Other Systems: Reviewed and Negative Past Medical History - Past Medical History Previously Healthy: Yes Endocrine: Reports: DM 2 Cardiovascular: Reports: None Respiratory: Reports: None Hematological: Reports: None Gastrointestinal: Reports: None Genitourinary: Reports: None Neuro/Psych: Reports: None Musculoskeletal: Reports: None Cancer: Reports: None - Surgical History General Surgical History: Reports: None - Family History Family History: Reports: None - Social History Smoking Status: Never smoker Hx Substance Use: No Alcohol Screening: None Physical Exam - Physical Exam Appearance: Well-appearing, No pain distress, Well-nourished Eyes: SUNDAR, EOMI, Conjunctiva clear ENT: Ears normal, Nose normal, Oropharynx normal Respiratory: Airway patent, Breath sounds clear, Breath sounds equal, Respirations nonlabored Cardiovascular: RRR, Pulses normal, No rub, No murmur GI/: Soft, Nontender, No masses, Bowel sounds normal, No Organomegaly Musculoskeletal: Normal strength, ROM intact, No edema, No calf tenderness Skin: Warm, Dry, Normal color Neurological: Sensation intact, Motor intact, Reflexes intact, Cranial nerves intact, Alert, Oriented Psychiatric: Affect appropriate, Mood appropriate Interpretation - Radiology Interpretation Radiology Interpretation By: Radiologist Radiology Results: No acute changes Critical Care Note - Critical Care Note Total Time (mins): 0 Course - Course Orders, Labs, Meds: Orders Category Date Time Status HAND, RIGHT 3 VIEWS Stat RADS 06/20/17 10:20 Ordered WRIST, RIGHT 3 VIEWS Stat RADS 06/20/17 10:20 Ordered Vital Signs: Temp Pulse Resp BP Pulse Ox 06/20/17 10:12 98.0 F 87 20 178/98 H 96 Departure - Departure Time of Disposition: 11:14 (GALINA PRESENT THROUGH OUT PRESENTATION. REPORTED AND GAVE A COPY OF BOTH REPORTS TO THE PT , ORTHO OR RHEUMATOLOGY CONSULT DISCUSSED . ) Disposition: HOME SELF-CARE Discharge Problem: Pain in wrist Hand joint pain Qualifiers: Laterality: right Qualified Code(s): M25.541 - Pain in joints of right hand Instructions: Arthralgia (ED) Condition: Good Pt referred to PMD for follow-up: Yes Additional Instructions: Please call your Family Physician as soon as possible to schedule a follow-up appointment. NOTHING IS BROKEN I THINK YOU ARE BEST SERVED WITH A RHEUMATOLOGY CONSULT Please call your Family Physician as soon as possible to schedule a follow-up appointment. Allergies/Adverse Reactions: Allergies Penicillins Adverse Reaction (Verified 06/20/17 10:18) Home Medications: Ambulatory Orders Aspirin [[place] Chewable] 81 mg PO DAILY 06/06/13 Calcium Citrate/Vitamin D3 [Citracal-Vit D 200 mg-250 Tab] 1 tab PO DAILY Chromium Picolinate 1,000 mcg PO DAILY 06/06/13 Folic Acid 1 mg PO 5XD 06/06/13 Gabapentin 600 mg PO BID 06/06/13 Insulin Aspart [Novolog] 100 unit SQ TIDWM 06/06/13 Inulin/Vit D3/Ca Carb/Sorbitol [Fiber Choice Plus Calcium Tab] 1 tab PO DAILY Lisinopril/Hydrochlorothiazide [Lisinopril-Hctz 10-12.5 mg Tab] 1 tab PO DAILY 06/06/13 Loratadine [Claritin] 10 mg PO DAILY 06/06/13 Methotrexate Sodium [Methotrexate] 2.5 mg PO DAILY 06/06/13 Montelukast Sodium 10 mg PO DAILY 06/06/13 Multivit-Min/FA/Lycopene/Lut [Centrum Silver Tablet] 1 tab PO DAILY 06/06/13 Nabumetone [Relafen] 750 mg PO BIDWM 06/06/13 Pirbuterol Acetate [Maxair Autohaler] 14 gm IH PRN PRN 06/06/13 Pravastatin Sodium 10 mg PO BEDTIME 06/06/13 Selenium 200 mcg PO DAILY 06/06/13 Tramadol HCl [Ultram] 50 mg PO BID 06/06/13 Ubidecarenone [Co Q-10] 400 mg PO DAILY 06/06/13 Zinc Amino Acid Chelate [Zinc] 50 mg PO DAILY 06/06/13
== END 2017-06-20 11:20 | disposition home or self-care (01) ==
LOC: ED 10:12
DX: M25.541 Pain in joints of right hand (principal); M79.641 Pain in right hand
CPT/HCPCS: 99283

== ENCOUNTER 2017-12-10 14:00 | Outpatient (RCR) ==
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
== END 2017-12-22 23:59 ==
PROVIDERS: ATTEND Orthopaedic Surgery
DX: M79.671 Pain in right foot (principal); M25.571 Pain in right ankle and joints of right foot; M25.673 Stiffness of unspecified ankle, not elsewhere classified; M62.81 Muscle weakness (generalized)

== ENCOUNTER 2017-12-11 15:39 | Emergency (ER) | payer OTHER ==
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
[2017-12-11] MEDS ORDERED: DILAUDID 1 MG/ML SYRINGE IVP STA ×2 (15:53→17:41)
[2017-12-11] MEDS ORDERED: SODIUM CHLORIDE 1,000 ML IV STA (15:53)
[2017-12-11 15:55] VITALS: BP 137/102; TEMP 98.6; BMI 32.3
[2017-12-11] MEDS ORDERED: ATIVAN IVP STA (15:55)
[2017-12-11] MEDS ORDERED: CLEOCIN 600 MG in SODIUM CHLORIDE 100 ML IV ONE (15:56)
[2017-12-11] MEDS ORDERED: CLEOCIN ONE ×2 (16:20→16:21)
[2017-12-11] MEDS ORDERED: LACTATED RINGERS 1,000 ML IV STA (17:40)
[2017-12-11] MEDS ORDERED: BOOSTRIX IM ONE ×2 (18:01→18:03)
== END 2017-12-11 18:30 | disposition short-term general hospital (02) ==
LOC: ED 15:39
DX: T24.232A Burn of second degree of left lower leg, initial encounter (principal); T24.231A Burn of second degree of right lower leg, initial encounter; T31.0 Burns involving less than 10% of body surface; X08.8XXA Exposure to other specified smoke, fire and flames, initial encounter
CPT/HCPCS: 36415; 51798; 80053; 85025; 96361; 96365; 96375; 96376; 99285

== ENCOUNTER 2018-01-23 14:44 | Outpatient (CLI) | END 2018-01-23 14:45 | disposition left against medical advice (07) | LOC: AMBL 14:44 | PROVIDERS: ATTEND Internal Medicine | DX: R55 Syncope and collapse (principal); E11.649 Type 2 diabetes mellitus with hypoglycemia without coma; Z79.4 Long term (current) use of insulin ==

== ENCOUNTER 2018-11-02 08:37 | Outpatient (CLI) | payer OTHER ==
[2018-07-24 17:05] VITALS: BMI 33.7
--- NOTE | 2018-11-02 09:28 | US ---
EXAM: RENAL ULTRASOUND, BILATERAL HISTORY: Right lower back pain FINDINGS: Ultrasound renal, bilateral. Jha-scale ultrasound and color Doppler imaging was performe d. The right kidney measures 13.1 x 5.7 x 5.6 centimeters. The left kidney measures 13.5 x 6.4 x 4.8 centimeters. General cortical echogenicity and volume are normal for age. No solid or cystic cortical masses. No hydronephrosis is identified. Urinary bladder was relatively decompressed although grossly unremar kable. IMPRESSION: No hydronephrosis identified.
--- NOTE | 2018-11-02 09:33 | CT ---
EXAM: CT of the abdomen pelvis without contrast History: Right flank pain. Technique: Multiplanar CT images through the abdomen pelvis were obtained without the administration of IV contrast Findings: Lung bases are clear. No acute osseous abnormalities. Degenerative changes of the spine. Mild atherosclerotic vascular calcifications. 2.8 cm simple cyst within the left hepatic lobe. No g allstones identified by CT. Spleen is unremarkable. No renal stones and no hydronephrosis. The ed endix is normal. No bowel obstruction. No free air and no ascites. No peripancreatic inflammation. Adrenal glands are unremarkable. Fat-containing bilateral inguinal hernias and partially visualize d right scrotal hydrocele. Mild circumferential bladder wall thickening. Impression: 1. No renal or ureteral calculi and no hydronephrosis. 2. Mild circumferential bladder wall thickening. Correlate with urinalysis for possible cystitis. 3. Fat-containing bilateral inguinal hernias and partially visualized right scrotal hydrocele. 4. Simple hepatic cyst
== END 2018-11-02 08:38 | disposition home or self-care (01) ==
LOC: RAD 08:37
PROVIDERS: ATTEND Family Medicine
DX: M54.5 Low back pain (principal)